=== PATIENT | male | born 1985 | race Caucasian/White ===

== ENCOUNTER 2016-12-11 14:10 | Emergency (ER) | payer OTHER ==
[~2016-12-11] VITALS: Ht 185.4 cm; Wt 81.9 kg
[2016-12-11 14:59] LABS: HEMATOCRIT 44.4 % (39.2-51.8); HEMOGLOBIN 15.4 g/dL (13.7-18.0); WHITE BLOOD COUNT 9.2 x10^3/uL (3.4-10)
[2016-12-11] MEDS ORDERED: SODIUM CHLORIDE FLUSH 10ML SYR IVF ONE (15:00)
[2016-12-11 15:10] LABS: BLOOD UREA NITROGEN 14 mg/dL (7-18)
[2016-12-11] MEDS ORDERED: OMNIPAQUE 350 MG/ML, 100ML BOTTLE ONE (17:13)
[2016-12-11 17:28] VITALS: BP 116/71
== END 2016-12-11 18:35 | disposition home or self-care (01) ==
LOC: ED 18:26
DX: I88.9 Nonspecific lymphadenitis, unspecified (principal)
CPT/HCPCS: 36415; 70491; 71010; 80048; 82040; 85025; 99285; Q9967